=== PATIENT | female | born 1965 | race Caucasian/White ===

== ENCOUNTER → 2018-10-29 | Outpatient (CLI) | payer BC ==
--- NOTE | 2018-10-29 15:04 | PCVCIMAG ---
APPROVED REPORT Study performed: 10/29/2018 14:09:30 Exam: Stress Echocardiogram Indication: Hypertension, fam hx CAD, hx of prior tobacco use Patient Location: Echo lab Stress Nurse: Gabriella Anne RN Status: routine Ht: 5 ft 2 in HR: 79 bpm BP: 128/82 mmHg Rhythm: NSR Procedure The patient underwent an Exercise Stress Test using the Shad Protocol. Blood pressure, heart rate, and EKG were monitored. An Echocardiogram was performed by measurement and sensing technician in four stages in quad fashion. At peak stress, four selected images were obtained and placed side by side with resting images for comparison. Stress Test Details Stress Test: Exercise stress testing was performed using a Shad protocol. HR Resting HR: 80 bpmMax Heart Rate (APMHR): 165 bpm Max HR Achieved: 181 bpmTarget HR (85% APMHR): 140 bpm % of APMHR: 109 Recovery HR: 101 bpm HR response to stress: Normal HR response to stress BP Resting BP: 128/82 mmHg Max BP: 142/70 mmHg Recovery BP: 112/66 mmHg BP response to stress: Normal blood pressure response to stress. ECG Resting ECG: Sinus Rhythm Stress ECG: Sinus Rhythm ST Change: Normal Arrhythmia: occasional PVC Recovery ECG: Sinus Rhythm Recovery ST Change: Normal Recovery Arrhythmia: occasional PVC Clinical Reason for Termination: Maximal effort Stress Symptoms: Dyspnea Exercise duration: 10 min 1 sec Highest Stage Achieved: Stage 4: 4.2 mph at 16% grade. Exercise capacity: 13.4 METs Overall Exercise Capacity for Age: Good Scale: Active Angina Score: None Pre-Stress Echo The resting Echocardiogram showed normal left ventricular contractility with an estimated Ejection Fraction of about >55%. Normal wall motion in all segments on baseline images. Post-Stress Echo The stress Echocardiogram showed normal left ventricular contractility with an estimated Ejection Fraction of about 65%. Normal augmentation of wall motion in all segments on post stress images. Clinical No clinical or ECG evidence for ischemia. Conclusion Clinical Response: Non-ischemic Exercise Capacity: Average Stress ECG Response: Non-ischemic Stress Echo Images: Non-ischemic The left ventricle is normal in size and wall thickness in both the rest and stress images. Other Information Study Quality: Adequate <Conclusion> The left ventricle is normal in size and wall thickness in both the rest and stress images.
--- NOTE | 2018-10-29 18:41 | PCVCIMAG ---
EXAM: BILATERAL LOWER EXTREMITY ARTERIAL DUPLEX INDICATION: Peripheral Arterial Disease. Leg pain. FINDINGS: Right Leg: Satisfactory arterial waveforms throughout the common/profunda/superficial femoral, popliteal, anterior tibial, peroneal, and posterior tibial arteries. No flow limiting stenosis seen. Left Leg: Satisfactory arterial waveforms throughout the common/profunda/superficial femoral, popliteal, anterior tibial, peroneal, and posterior tibial arteries. No flow limiting stenosis seen. IMPRESSION: No flow limiting stenosis in the right lower extremity. No flow limiting stenosis in the left lower extremity. LOC:[id number]
== END | disposition home or self-care (01) ==
LOC: PCVCIMAG 13:31
PROVIDERS: ATTEND Internal Medicine Cardiovascular Disease
DX: I73.9 Peripheral vascular disease, unspecified (principal); I10 Essential (primary) hypertension; Z82.49 Family history of ischemic heart disease and other diseases of the circulatory system; Z87.891 Personal history of nicotine dependence
CPT/HCPCS: 93325; 93351; 93925